=== PATIENT | female | born 1965 | race Caucasian/White ===

== ENCOUNTER 2017-12-16 05:51 | Observation (INO) | payer MEDICARE, MEDICAID ==
[~2017-12-16] VITALS: Ht 175.3 cm; Wt 65.8 kg
[~2017-12-16 05:51] MED LIST: BACL-19 PO; BENZ1TAB61 PO; DIAZ5TAB4 PO; QUET300T5 PO; SERT20OR PO; TOPI100T24 PO; TRAZ100T15 PO; amoxicillin; ibuprofen; lovastatin; quetiapine; topamax
[2017-12-16] MEDS ORDERED: ARIP20TA5 PO ×2 (06:19→06:25)
[2017-12-16] MEDS ORDERED: HYDR50TA13 PO ×2 (06:19→06:23)
[2017-12-16] MEDS ORDERED: LITH300T3 PO (06:23)
[2017-12-16] MEDS ORDERED: CYCL5TAB PO (06:23)
[2017-12-16] MEDS ORDERED: LEVO25TA4 PO (06:23)
[2017-12-16] MEDS ORDERED: QUET300T5 PO (06:25)
[2017-12-16] MEDS ORDERED: TOPI100T24 PO (06:25)
[2017-12-16 06:38] LABS: BASOPHILS # (AUTO) 0.07 x10^3/uL (0-0.1); BASOPHILS % (AUTO) 1 % (0-1); EOSINOPHILS # (AUTO) 0.24 x10^3/uL (0-0.4); EOSINOPHILS % (AUTO) 4 % (1-7); LYMPHOCYTES # (AUTO) 1.14 x10^3/uL (1-3.4); LYMPHOCYTES % (AUTO) 20 % (22-44); MD NO; MEAN CORPUSCULAR HEMOGLOBIN 31.1 pg (27.0-34.8); MEAN CORPUSCULAR HGB CONC 33.6 g/dL (32.4-35.8); MEAN CORPUSCULAR VOLUME 92.6 fL (80-100); MONOCYTES # (AUTO) 0.42 x10^3/uL (0.2-0.8); MONOCYTES % (AUTO) 7 % (2-9); NEUTROPHILS # (AUTO) 3.99 x10^3/uL (1.8-6.8); NEUTROPHILS % (AUTO) 68 % (42-75); PLATELET COUNT 237 x10^3/uL (130-400); RED BLOOD COUNT 4.65 x10^6/uL (3.82-5.3); RED CELL DISTRIBUTION WIDTH 12.8 % (9.6-15.2)
[2017-12-16 06:50] LABS: AMPHETAMINE SCREEN, URINE Negative (Negative); BARBITURATE SCREEN, URINE Negative (Negative); CANNABINOID SCREEN, URINE Negative (Negative); COCAINE SCREEN, URINE Negative (Negative); METHADONE SCREEN, URINE Negative (Negative); OPIATE SCREEN, URINE Negative (Negative)
[2017-12-16 06:50] LABS: ALBUMIN 3.9 g/dL (3.4-5.0); ANION GAP 4 mmol/L (5-15); CALCIUM 9.1 mg/dL (8.5-10.1); CHLORIDE 111 mmol/L (98-107); CREATININE 0.77 mg/dL (0.55-1.02); SALICYLATE LEVEL 5.1 mg/dL (2.8-20.0)
[2017-12-16 06:59] LABS: BENZODIAZEPINE SCREEN, URINE Negative (Negative)
[2017-12-16 07:00] LABS: ACETAMINOPHEN < 2 mcg/mL (10-30)
[2017-12-16] MEDS ORDERED: HALOPERIDOL 5 MG TABLET PO PRN (09:00)
[2017-12-16] MEDS ORDERED: DOCUSATE 100 MG CAPSULE PO PRN (09:00)
[2017-12-16] MEDS ORDERED: IBUPROFEN 200 MG TABLET PO PRN (09:00)
[2017-12-16] MEDS ORDERED: BISACODYL 10 MG SUPP PR PRN (09:00)
[2017-12-16] MEDS ORDERED: ONDANSETRON ODT 4 MG PO PRN (09:00)
[2017-12-16] MEDS ORDERED: POLYETHYLENE GLYCOL 17 GM PACKET PO PRN (09:00)
[2017-12-16] MEDS ORDERED: NICOTINE 21 MG/24 HR PATCH.TD24 ONE (13:10)
[2017-12-16] MEDS: QUETIAPINE 100MG TABLET PO SCH (13:16)
[2017-12-16] MEDS: NICOTINE 21 MG/24 HR PATCH.TD24 TD SCH (13:16)
[2017-12-16] MEDS: TOPIRAMATE 100 MG TABLET PO SCH (13:16)
[2017-12-16] MEDS: ARIPIPRAZOLE 10 MG TABLET PO SCH (13:17)
[2017-12-16] MEDS: LEVOTHYROXINE 25 MCG TABLET PO SCH (13:17)
[2017-12-16] MEDS: hydrOXyzine 50MG TABLET PO SCH (13:17)
[2017-12-16] MEDS: LITHIUM CARBONATE 150 MG CAPSULE PO SCH ×2 (13:17→20:34)
[2017-12-17] MEDS: hydrOXyzine 50MG TABLET PO SCH (09:00)
[2017-12-17] MEDS: ARIPIPRAZOLE 10 MG TABLET PO SCH (09:43)
[2017-12-17] MEDS: QUETIAPINE 100MG TABLET PO SCH (09:44)
[2017-12-17] MEDS: LEVOTHYROXINE 25 MCG TABLET PO SCH (09:45)
[2017-12-17] MEDS: TOPIRAMATE 100 MG TABLET PO SCH (09:46)
[2017-12-17] MEDS: LITHIUM CARBONATE 150 MG CAPSULE PO SCH ×2 (09:46→20:32)
[2017-12-17] MEDS ORDERED: NICOTINE 21 MG/24 HR PATCH.TD24 ONE (12:53)
[2017-12-17] MEDS: NICOTINE 21 MG/24 HR PATCH.TD24 TD SCH (12:57)
[2017-12-17 20:36] VITALS: BP 95/66
[2017-12-18] MEDS: hydrOXyzine 50MG TABLET PO SCH ×2 (05:45→21:22)
[2017-12-18 07:35] VITALS: BP 118/80
[2017-12-18] MEDS: TOPIRAMATE 100 MG TABLET PO SCH (08:14)
[2017-12-18] MEDS: NICOTINE 21 MG/24 HR PATCH.TD24 TD SCH (08:14)
[2017-12-18] MEDS: LEVOTHYROXINE 25 MCG TABLET PO SCH (08:14)
[2017-12-18] MEDS: LITHIUM CARBONATE 150 MG CAPSULE PO SCH ×2 (08:14→21:23)
[2017-12-18] MEDS: ARIPIPRAZOLE 10 MG TABLET PO SCH (08:14)
[2017-12-18] MEDS: QUETIAPINE 100MG TABLET PO SCH ×2 (08:15→21:23)
[2017-12-18 20:13] VITALS: BP 106/71
[2017-12-19 08:15] VITALS: BP 112/78
[2017-12-19] MEDS: ARIPIPRAZOLE 10 MG TABLET PO SCH (09:53)
[2017-12-19] MEDS: NICOTINE 21 MG/24 HR PATCH.TD24 TD SCH (09:54)
[2017-12-19] MEDS: TOPIRAMATE 100 MG TABLET PO SCH (09:54)
[2017-12-19] MEDS: LEVOTHYROXINE 25 MCG TABLET PO SCH (09:54)
[2017-12-19] MEDS: LITHIUM CARBONATE 150 MG CAPSULE PO SCH ×2 (10:01→20:51)
[2017-12-19 20:10] VITALS: BP 104/70
[2017-12-19] MEDS: QUETIAPINE 100MG TABLET PO SCH (20:50)
[2017-12-19] MEDS: hydrOXyzine 50MG TABLET PO SCH (20:51)
== END 2017-12-20 01:30 ==
LOC: ED 07:28 → INTOOBSV 07:29 → EDIP 07:29 → ED 07:35 → 2N 12-17 20:19
PROVIDERS: ADMIT Internal Medicine; ATTEND Internal Medicine
DX: R45.851 Suicidal ideations (principal); F31.9 Bipolar disorder, unspecified; F20.9 Schizophrenia, unspecified; E03.9 Hypothyroidism, unspecified; F17.210 Nicotine dependence, cigarettes, uncomplicated; F32.9 Major depressive disorder, single episode, unspecified; G47.00 Insomnia, unspecified; Z91.5 Personal history of self-harm
CPT/HCPCS: 36415; 80048; 80178; 80307; 80329; 82040; 84443; 85025; 99285; G0378; G0480

== ENCOUNTER 2019-11-11 11:45 | Emergency (ER) | payer MEDICAID, MEDICARE ==
[~2019-11-11] VITALS: Ht 167.6 cm; Wt 75.0 kg
[~2019-11-11 11:45] MED LIST changes: +ARIP20TA5 PO; +CYCL5TAB PO; +HYDR-826 PO; +HYDR50TA13 PO; +LEVO25TA2 PO; +LEVO25TA4 PO; +LITH300T3 PO; +NICO-487 TD; +OLAN5TAB3 PO; +SERT100T PO; -SERT20OR PO; +TRAZ-137 PO; -TRAZ100T15 PO; +VENL37.57 PO; +ZIPR20CA2 PO
--- NOTE | 2019-11-11 11:45 | NUR ---
PT SUZANNE PERDOMO FROM [facility] ASSISTED LIVING FOR SUICIDE ATTEMPT. PER EMS, PT WAS HEARING VOICES TELLING HER TO HURT HERSELF AND STARTED TO CUT HER L WRIST WITH A PAIR OF SCISSORS. PT HAD REDDENED AREA TO L WRIST BUT NO OPEN WOUND. PT WAS PLACED ON LEGAL HOLD BY [employer]. PT HAS HX OF SCHIZOAFFECTIVE, BIPOLAR, PERSONALITY DISORDER, WITH MULTIPLE SUICIDE ATTEMPTS IN THE PAST. PER EMS, PT WAS WEANED OFF HER LORAZEPAM AND GEODON IN THE PAST WEEKS AND HAS HAD AN INCREASE IN HALLUCINATIONS AND SUICIDAL THOUGHTS SINCE THEN. ARRIVE TO ED A&OX4, CALM, COOPERATIVE. RV'WD POC WITH PT. PT CHANGED INTO GOWN, ROOM CLEARED, 2 BAGS OF BELONGINGS PLACED IN LOCKER.
[2019-11-11 11:48] VITALS: BP 124/82
--- NOTE | 2019-11-11 12:36 | NUR ---
URINE SAMPLE BROUGHT TO LAB. LUNCH TRAY PROVIDED TO PT. Addendum: 11/11/19 at 1239 by MARCIA PT DECLINED LUNCH TRAY, STATES SHE FEELS "TOO ANXIOUS". ERP WAS IN TO SEE PT.
[2019-11-11] MEDS ORDERED: TRAZ-137 PO (12:44)
[2019-11-11] MEDS ORDERED: OLAN2.5T10 PO (12:44)
[2019-11-11 12:47] LABS: BASOPHILS # (AUTO) 0.12 x10^3/uL (0-0.1); BASOPHILS % (AUTO) 2 % (0-1); EOSINOPHILS # (AUTO) 0.04 x10^3/uL (0-0.4); EOSINOPHILS % (AUTO) 1 % (1-7); LYMPHOCYTES # (AUTO) 1.75 x10^3/uL (1-3.4); LYMPHOCYTES % (AUTO) 26 % (22-44); MD NO; MEAN CORPUSCULAR HEMOGLOBIN 31.1 pg (27.0-34.8); MEAN CORPUSCULAR HGB CONC 33.5 g/dL (32.4-35.8); MEAN CORPUSCULAR VOLUME 92.7 fL (80-100); MEAN PLATELET VOLUME 7.8 fL (7.4-10.4); MONOCYTES % (AUTO) 7 % (2-9); NEUTROPHILS # (AUTO) 4.41 x10^3/uL (1.8-6.8); NEUTROPHILS % (AUTO) 65 % (42-75); PLATELET COUNT 256 x10^3/uL (130-400); RED BLOOD COUNT 4.93 x10^6/uL (3.82-5.3); RED CELL DISTRIBUTION WIDTH 12.9 % (9.6-15.2)
[2019-11-11] MEDS ORDERED: BENZ0.5T35 PO (12:52)
[2019-11-11 12:56] LABS: ALANINE AMINOTRANSFERASE 30 U/L (12-78); ALBUMIN 4.1 g/dL (3.4-5.0); ANION GAP 5 mmol/L (5-15); CALCIUM 9.4 mg/dL (8.5-10.1); CHLORIDE 109 mmol/L (98-107); CREATININE 0.71 mg/dL (0.55-1.02); SALICYLATE LEVEL 5.7 mg/dL (2.8-20.0)
[2019-11-11 12:59] LABS: ALKALINE PHOSPHATASE 118 U/L (45-117); BILIRUBIN,TOTAL 0.5 mg/dL (0.2-1.0); TOTAL PROTEIN 7.7 g/dL (6.4-8.2)
[2019-11-11] MEDS ORDERED: NAPR-816 PO (13:04)
[2019-11-11] MEDS ORDERED: PRAZ2CAP2 PO (13:04)
[2019-11-11] MEDS ORDERED: LOXA25CA PO (13:04)
[2019-11-11] MEDS ORDERED: MULTIVITAMIN PO (13:04)
[2019-11-11] MEDS ORDERED: ACET-76 PO (13:04)
[2019-11-11] MEDS ORDERED: CHOL20002 PO (13:06)
[2019-11-11] MEDS ORDERED: LORA-445 PO (13:09)
[2019-11-11] MEDS ORDERED: QUETIAPINE 25MG TABLET PO PRN (13:30)
[2019-11-11 13:31] LABS: AMPHETAMINE SCREEN, URINE Negative (Negative); BARBITURATE SCREEN, URINE Negative (Negative); BENZODIAZEPINE SCREEN, URINE Negative (Negative); CANNABINOID SCREEN, URINE Negative (Negative); COCAINE SCREEN, URINE Negative (Negative); METHADONE SCREEN, URINE Negative (Negative); OPIATE SCREEN, URINE Negative (Negative)
[2019-11-11] MEDS ORDERED: QUETIAPINE 25MG TABLET ONE (14:10)
--- NOTE | 2019-11-11 14:15 | NUR ---
PT MEDICATED WITH SEROQUEL PER PRN ORDERS FOR ANXIETY. PT STILL DECLINES LUNCH. WATCHING TV IN [facility]. RV'WD PLAN FOR ADMISISON TO 3RD FLOOR WITH PT, SHE VERBALIZES UNDERSTANDING.
--- NOTE | 2019-11-11 14:34 | NUR ---
THROUGHPUT: FAXED TO [facility].
--- NOTE | 2019-11-11 15:03 | NUR ---
HOSPITALIST IN TO SEE PT.
[2019-11-11] MEDS ORDERED: NAPROXEN 250 MG TABLET PO SCH (21:00)
[2019-11-11] MEDS ORDERED: PRAZOSIN 2 MG CAPSULE PO SCH (21:00)
[2019-11-11] MEDS ORDERED: LOXAPINE 25 MG PO SCH (21:00)
[2019-11-11] MEDS ORDERED: OLANZAPINE 2.5 MG TABLET PO SCH (21:00)
[2019-11-11] MEDS ORDERED: TRAZODONE 100MG TABLET PO SCH (21:00)
[2019-11-12] MEDS ORDERED: MULTIVITAMIN 1 TABLET PO SCH (09:00)
[2019-11-12] MEDS ORDERED: BENZTROPINE 1 MG TABLET PO SCH (09:00)
[2019-11-12] MEDS ORDERED: LEVOTHYROXINE 25 MCG TABLET PO SCH (09:00)
[2019-11-18] MEDS ORDERED: NICO-487 TD (11:51)
[2019-11-18] MEDS ORDERED: LOXA25CA PO (11:51)
[2019-11-18] MEDS ORDERED: OLAN5TAB9 PO (11:51)
[2019-11-18] MEDS ORDERED: MULT1TAB60 PO (11:51)
[2019-11-18] MEDS ORDERED: LEVO25TA2 PO (11:51)
[2019-11-18] MEDS ORDERED: TRAZ-137 PO (11:51)
[2019-11-18] MEDS ORDERED: TOPI100T24 PO (11:51)
[2019-11-18] MEDS ORDERED: QUET25TA7 PO (11:51)
[2019-11-18] MEDS ORDERED: BENZ1TAB61 PO (11:51)
[2019-11-18] MEDS ORDERED: PRAZ2CAP2 PO (11:51)
[2019-11-18] MEDS ORDERED: CHOL10003 PO (11:51)
[2019-11-18] MEDS ORDERED: NAPR250T6 PO (11:51)
== END 2019-11-12 07:11 | disposition other institution (70) ==
LOC: ED 12:41
DX: R45.851 Suicidal ideations (principal); I10 Essential (primary) hypertension; F31.9 Bipolar disorder, unspecified; F20.9 Schizophrenia, unspecified; F17.201 Nicotine dependence, unspecified, in remission; Z90.89 Acquired absence of other organs; Z90.49 Acquired absence of other specified parts of digestive tract
CPT/HCPCS: 36415; 80053; 80307; 85025; 99284